=== PATIENT | female | born 1995 | race Caucasian/White ===

== ENCOUNTER 2017-01-15 16:46 | Emergency (ER) | payer SELFPAY ==
[~2017-01-15] VITALS: Ht 170.2 cm; Wt 77.3 kg
[~2017-01-15 16:46] MED LIST: AMOXICILLIN/PO500 MG PO; BACTRIM DS1 TAB PO; LORTAB 5-325 MG1 TAB PO; MUPIROCIN2 % EX
[2017-01-15] MEDS ORDERED: MOTRIN800 MG PO (17:21)
[2017-01-15] MEDS ORDERED: ZOFRAN ODT4 MG PO (17:21)
[2017-01-15] MEDS ORDERED: PENICILLN VK500 MG PO (17:21)
[2017-01-15 17:23] VITALS: BP 131/94
== END 2017-01-15 17:27 | disposition home or self-care (01) | DRG 159 ==
LOC: ED 16:46
DX: K01.1 Impacted teeth (principal)